=== PATIENT | female | born 1945 | race Caucasian/White ===

== ENCOUNTER 2019-03-13 19:49 | Inpatient (IN) | payer MEDICARE, BC ==
[~2019-03-13] VITALS: Ht 160 cm; Wt 60.1 kg
[~2019-03-13 19:49] MED LIST: HYDR1TAB94 PO; OXYACE5T PO; Percocet 5-3251 EACH PO
[2019-03-13 20:20] LABS: BASOPHILS ABSOLUTE AUTO 0.04 K/mm3 (0.00-0.23); BASOPHILS PERCENT AUTO 0 % (0-2); EOSINOPHILS PERCENT AUTO 0 % (0-6); Hematocrit 45.9 % (33.0-51.0); Hemoglobin 14.4 g/dL (11.5-16.0); IMMATURE GRAN ABSOLUTE AUTO 0.08 K/mm3 (0.00-0.10); IMMATURE GRAN PERCENT AUTO 0 % (0-1); LYMPHOCYTES ABSOLUTE AUTO 1.04 K/mm3 (0.84-5.20); LYMPHOCYTES PERCENT AUTO 5 % (21-46); MONOCYTES ABSOLUTE AUTO 0.92 K/mm3 (0.16-1.47); MONOCYTES PERCENT AUTO 5 % (4-13); Mean Corpuscular HGB 27.7 pg (26.0-34.0); Mean Corpuscular HGB Conc 31.4 g/dL (31.5-36.5); Mean Corpuscular Volume 88 fL (80-100); NEUTROPHILS ABSOLUTE AUTO 18.04 K/mm3 (1.96-9.15); NEUTROPHILS PERCENT AUTO 90 % (41-73); Platelet Count 464 K/mm3 (150-400); RDW Coefficient Variation 13.9 % (11.7-14.2); RDW Standard Deviation 45.1 fL (35.1-46.3); White Blood Cell Count 20.12 K/mm3 (4.00-11.30)
[2019-03-13 20:36] LABS: International Normalized Ratio 0.97; Prothrombin Time Results 10.3 Sec (9.7-11.5)
[2019-03-13 20:39] LABS: Alanine Aminotransfer (ALT/SGP 18 U/L (12-78); Albumin, Blood 3.6 g/dL (3.4-5.0); Albumin/Globulin Ratio 0.7 (0.8-1.8); Alk Phos 171 U/L (50-136); Anion Gap 13 mmol/L (6-16); Aspartate Aminotrans (AST/SGOT 53 U/L (12-37); Blood Urea Nitrogen 14 mg/dL (8-24); Bun/Creatinine Ratio 23.4 (12.0-20.0); CO2, Blood 23 mmol/L (21-32); Calcium, Blood 9.4 mg/dL (8.5-10.1); Chloride, Blood 96 mmol/L (98-108); Globulin, Blood 5.1 g/dL (2.2-4.0); Glomerular Filtration Rate >60 (60-); Glucose, Blood 104 mg/dL (70-99); Potassium, Blood 3.9 mmol/L (3.5-5.5); Sodium, Blood 132 mmol/L (136-145); Total Protein, Blood 8.7 g/dL (6.4-8.2)
[2019-03-13 22:57] LABS: Source, Urine Catheter
[2019-03-13 22:59] LABS: Creatine Kinase MB Index 0.9 (0.0-4.0)
[2019-03-13 22:59] LABS: Bilirubin, Urine Neg (Neg); Blood, Urine 1+ (Neg); Glucose Qualitative, Urine Neg (Neg); Ketones, Urine 4+ (Neg); Leukocyte Esterase, Urine Neg (Neg); Nitrite, Urine Neg (Neg); Protein, Urine 3+ (Neg); Urobilinogen, Urine NORM (Normal); pH, Urine 6.5 (5.0-8.0)
[2019-03-13 23:06] LABS: Appearance, Urine Clear (Clear); Bacteria Rare /hpf; Color, Urine Yellow (P-Yellow); Mucus Light (0-Heavy); Red Blood Cells, Urine 0-2 /hpf (0-2); Squamous Epithelial Cells Few /hpf (Few); White Blood Cells, Urine Not Seen /hpf (0-5)
[2019-03-13 23:22] LABS: Magnesium, Blood 2.1 mg/dL (1.6-2.4)
[2019-03-13 23:25] LABS: Thyroid Stimulating Hormone 0.447 uIU/mL (0.360-4.800)
--- NOTE | 2019-03-14 05:34 | NUR ---
SHIFT SUMMARY: PT IS ALERT BUT DROWSY UPON ARRIVAL TO THE FLOOR. IT IS HARD TO DETERMINE HOW ORIENTED SHE IS, DOES ANSWER QUESTIONS APPROPRIATELY BUT HER SPEECH IS SLURRED/GARBLED AND DIFFICULT TO UNDERSTAND. WIGGINS PATENT AND DRAINING YELLOW URINE. PT DENIES PAIN, NAUSEA, VOMITING, AND SOB. FAMILY ARRIVED FROM OUT OF STATE EARLY IN THE MORNING. PT SLEPT MOST OF THE NIGHT AFTER ADMISSION. STRICT NPO ORDERED. BED IN LOW POSITION, CALL LIGHT WITHIN REACH, BED ALARM SET. WILL REPORT TO DAY NURSE.
[2019-03-14 05:57] LABS: Hematocrit 39.8 % (33.0-51.0); Hemoglobin 12.4 g/dL (11.5-16.0); Mean Corpuscular HGB 27.9 pg (26.0-34.0); Mean Corpuscular HGB Conc 31.2 g/dL (31.5-36.5); Mean Corpuscular Volume 89 fL (80-100); Mean Platelet Volume 10.3 fL (9.1-12.4); Platelet Count 332 K/mm3 (150-400); RDW Coefficient Variation 14.1 % (11.7-14.2); Red Blood Cell Count 4.45 M/mm3 (3.80-5.20); White Blood Cell Count 17.07 K/mm3 (4.00-11.30)
[2019-03-14 06:24] LABS: Anion Gap 8 mmol/L (6-16); Blood Urea Nitrogen 15 mg/dL (8-24); Bun/Creatinine Ratio 22.5 (12.0-20.0); CHOL/HDL RATIO 3.8; CO2, Blood 25 mmol/L (21-32); Calcium, Blood 8.4 mg/dL (8.5-10.1); Chloride, Blood 100 mmol/L (98-108); Cholesterol 167 mg/dL (50-200); Creatinine, Blood 0.67 mg/dL (0.40-1.00); Glomerular Filtration Rate >60 (60-); Glucose, Blood 71 mg/dL (70-99); HDL Cholesterol 44 mg/dL (>39); LDL/HDL RATIO 2.4; Low Density Lipoprotein Chol 106 mg/dL (0-110); Potassium, Blood 3.7 mmol/L (3.5-5.5); Sodium, Blood 133 mmol/L (136-145); Triglycerides 84 mg/dL (30-160); Very Low Density Lipoprot Chol 16 mg/dL (6-32)
--- NOTE | 2019-03-14 10:24 | NUR ---
ECHOCARDIOGRAM COMPLETED
--- NOTE | 2019-03-15 04:45 | NUR ---
SHIFT SUMMARY: PT SLEEPING ALL SHIFT. FAMILY IN THE ROOM AT THE START OF THE NIGHT. PT IS A 1-2 ASSIST FOR TRANSFERS, NOT OUT OF BED OVERNIGHT. FLUIDS RUNNING ORDERED. CATHETER PATENT AND DRAINING YELLOW URINE. PT SHOWS NO S/S FOR PAIN, NAUSEA, VOMITING, OR SOB. NO ACUTE CHANGES OVERNIGHT. WILL REPORT TO DAY NURSE.
--- NOTE | 2019-03-15 18:07 | NUR ---
SHIFT SUMMARY PATIENT PLEASANT. NO ACUTE CONCERNS. PATIENT TO DISCHARGE ON MONDAY TO [facility]. DR. JAQUEZ AND MYSELF ARE AWARE. PATIENT IS PRIVATE PAY WITH [employer] AND HAVE FACILITATED THE PAYMENT PRIOR TO PATIENT DISCHARGE. PATIENT IS TO BE TRANSPORTED TO [facility]. ALL DISCHARGE INFORMATION SHOULD BE FAXED TO PATIENTS FACILITY PRIOR TO THE DISCHARGE SO THAT THE PATIENT CAN BE SETTLED WHEN SHE ARRIVES AT THE FACILITY.
[2019-03-16 05:32] LABS: BASOPHILS ABSOLUTE AUTO 0.05 K/mm3 (0.00-0.23); BASOPHILS PERCENT AUTO 0 % (0-2); EOSINOPHILS ABSOLUTE AUTO 0.03 K/mm3 (0.00-0.68); EOSINOPHILS PERCENT AUTO 0 % (0-6); Hematocrit 41.4 % (33.0-51.0); Hemoglobin 12.8 g/dL (11.5-16.0); IMMATURE GRAN ABSOLUTE AUTO 0.05 K/mm3 (0.00-0.10); IMMATURE GRAN PERCENT AUTO 0 % (0-1); LYMPHOCYTES ABSOLUTE AUTO 1.04 K/mm3 (0.84-5.20); LYMPHOCYTES PERCENT AUTO 9 % (21-46); MONOCYTES ABSOLUTE AUTO 1.04 K/mm3 (0.16-1.47); MONOCYTES PERCENT AUTO 9 % (4-13); Mean Corpuscular HGB 27.9 pg (26.0-34.0); Mean Corpuscular HGB Conc 30.9 g/dL (31.5-36.5); Mean Corpuscular Volume 90 fL (80-100); NEUTROPHILS PERCENT AUTO 82 % (41-73); Platelet Count 332 K/mm3 (150-400); RDW Coefficient Variation 14.3 % (11.7-14.2); RDW Standard Deviation 47.4 fL (35.1-46.3); Red Blood Cell Count 4.58 M/mm3 (3.80-5.20); White Blood Cell Count 12.21 K/mm3 (4.00-11.30)
[2019-03-16 05:45] LABS: Anion Gap 8 mmol/L (6-16); Blood Urea Nitrogen 12 mg/dL (8-24); Bun/Creatinine Ratio 19.4 (12.0-20.0); CO2, Blood 29 mmol/L (21-32); Calcium, Blood 8.6 mg/dL (8.5-10.1); Chloride, Blood 102 mmol/L (98-108); Creatinine, Blood 0.62 mg/dL (0.40-1.00); Glomerular Filtration Rate >60 (60-); Glucose, Blood 72 mg/dL (70-99); Potassium, Blood 3.9 mmol/L (3.5-5.5); Sodium, Blood 139 mmol/L (136-145)
--- NOTE | 2019-03-16 07:19 | NUR ---
alert, orintated to self, call light in reach able to make needs known, saline locked, 3L via nc, walking rounds completed with returning day shift
--- NOTE | 2019-03-16 16:40 | NUR ---
PATIENT WENT INTO ONE EPISODE OF SVT NOTED BY THE TERRAZZO LAYER. SPOKE WITH THE PATIENT AND EHR FAMILY. PATIENT WAS ASYMPTOMATIC AND WENT BACK TO SINUS RHYTHM ON HER OWN. CHECKED VITALS, PATIENT STABLE. WAS NOTIFIED OF ANOTHER EPISODE OF INCREASED HEART RATE THAT SUSTAINED IN THE 180S. CHECKED ON PATIENT, ASYMPTOMATIC MINUS LETHARGY. NO INCREASED BREATHING LABOR NOTED. PATIENT CONVERTED ONCE MORE. WITHIN 10 MINUTES WAS NOTIFIED PATIENT WAS ONCE AGAIN IN THE 180S AND STAYED IN THE 180S. CALLED DR. JAQUEZ AND CHECKED VITALS. PATIENTS BLOOD PRESSURE AND OTHER VITALS WERE STABLE. DR. JAQUEZ ORDERED AN EKG WHICH NOTED THE PATIENT WAS IN AFIB. PATIENT WAS SET UP FOR TRANSFER TO PCU. FAMILY WAS IN THE ROOM WHEN THE DECISION WAS MADE. FAMILY IS NOTIFIED. PATIENT WAS GIVEN ONE TIME DOSE OF 2.5 MG METOPROLOL IV PUSH. PATIENT TRANSFERRED IMMEDIATELY AFTER DOSE OF METOPROLOL GIVEN. BEDSIDE REPORT GIVEN TO [employer] SALES REPRESENTATIVE.
--- NOTE | 2019-03-16 17:17 | NUR ---
PT TRANSFERED FROM [facility] TO [facility] @3665. PT WAS WHEELED DOWN IN A CHAIR. PT SITTING AND LEANING TOWARDS THE R SIDE. PT ALERT TO SELF, FAMILY AND CAN FOLLOW DIRECTIONS. PT SPEECH IS SLURRED AND SPEAKS ONE WORD SENTENCES. L SIDED WEAKNESS DUE TO ISCHEMIC CVA. SENSATION ABSENT IN L ARM. RHYTHMN NORMAL SINUS PER OUTSIDE RIGGER.IV IN HER R AC. PERIPHERAL PULSES STRONG. INDWELLING CATH DRAINING. URINE YELLOW AND CLEAR. PAIN DENIES PAIN AT THIS TIME. FAMILY IN ROOM AND IS INVOLVED WITH CARE. FAMILY EXPRESSES WISHES TO BE DISCHARGED TO [place] TOMORROW IF EVERYTHING GOES WELL TONIGHT. WILL CONTINUE TO MONITOR UNTIL SHIFT CHANGE.
--- NOTE | 2019-03-16 20:34 | NUR ---
PM NOTE ASSUMED CARE OF PT APROX 1900, PT IS A&O TO SELF, FAMILY, PLACE AND PRESIDENT. PT IS S/P RIGHT SIDED CVA W/LEFT SIDED DEFICITS. PT'S LEFT ARM MOVEMENT/SENSATION IS ABSENT, PT'S LEFT LEG HAS SOME GROSS MOVEMENT BUT UNABLE TO ASSESS SENSATION AT THIS TIME. PT HAS LEFT SIDED FACIAL DROOP AND UNABLE TO OPEN HER LEFT EYE. PT HAS SEVERAL FAMILY MEMEBERS IN THE ROOM FROM OUT OF TOWN, FAMILY PLANS TO TAKE PT BACK TO [place]. TELE INTACT, NSR IN THE 90'S-100'S PER FURNACE CHECKER, PT'S LAST EPISODE OF AFIB WAS APROX 1600 TODAY. PT'S BP 114/68. NO EDEMA NOTED ON ASSESSMENT. PT'S L/S CELAR T/O BUT DIM ON THE RIGHT SIDE, PT IS ON 2L NC AT 95%, THIS WAS JUST TITRATED FROM 4L NC, WILL CONTINUE TO TITRATE PT TOLERATES. BT PRESENT BUT HYPOACTIVE, ABD IS SOFT AND NONTENDER TO PALP. PT'S SPEECH IS SLURRED AND WORD SALAD AT TIMES. PT'S WIGGINS IS PATENT AND DRAINING CLEAR YELLOW URINE TO GRAVITY. CALL LIGHT IN REACH, BED IS LOCKED AND LOW WILL CONTINUE TO MONITOR.
[2019-03-17 04:04] LABS: BASOPHILS ABSOLUTE AUTO 0.05 K/mm3 (0.00-0.23); BASOPHILS PERCENT AUTO 0 % (0-2); EOSINOPHILS ABSOLUTE AUTO 0.06 K/mm3 (0.00-0.68); EOSINOPHILS PERCENT AUTO 0 % (0-6); Hematocrit 39.8 % (33.0-51.0); Hemoglobin 12.4 g/dL (11.5-16.0); IMMATURE GRAN ABSOLUTE AUTO 0.04 K/mm3 (0.00-0.10); IMMATURE GRAN PERCENT AUTO 0 % (0-1); LYMPHOCYTES PERCENT AUTO 9 % (21-46); MONOCYTES ABSOLUTE AUTO 1.26 K/mm3 (0.16-1.47); MONOCYTES PERCENT AUTO 9 % (4-13); Mean Corpuscular HGB 27.6 pg (26.0-34.0); Mean Corpuscular HGB Conc 31.2 g/dL (31.5-36.5); Mean Corpuscular Volume 89 fL (80-100); Mean Platelet Volume 10.2 fL (9.1-12.4); NEUTROPHILS ABSOLUTE AUTO 11.35 K/mm3 (1.96-9.15); NEUTROPHILS PERCENT AUTO 81 % (41-73); Platelet Count 386 K/mm3 (150-400); RDW Coefficient Variation 14.2 % (11.7-14.2); RDW Standard Deviation 45.4 fL (35.1-46.3); Red Blood Cell Count 4.49 M/mm3 (3.80-5.20); White Blood Cell Count 14.06 K/mm3 (4.00-11.30)
[2019-03-17 04:18] LABS: Anion Gap 9 mmol/L (6-16); Blood Urea Nitrogen 17 mg/dL (8-24); Bun/Creatinine Ratio 26.4 (12.0-20.0); CO2, Blood 30 mmol/L (21-32); Calcium, Blood 8.9 mg/dL (8.5-10.1); Chloride, Blood 99 mmol/L (98-108); Creatinine, Blood 0.64 mg/dL (0.40-1.00); Glomerular Filtration Rate >60 (60-); Glucose, Blood 97 mg/dL (70-99); Potassium, Blood 3.6 mmol/L (3.5-5.5); Sodium, Blood 138 mmol/L (136-145)
--- NOTE | 2019-03-17 06:31 | NUR ---
SHIFT SUMMARY. PT SLEPT MOST OF THE NIGHT, VS STABLE T/O SHIFT. TEMP INCREASED TO 99.9, PT WAS MEDICATED PER EMAR W/GOOD RESULTS. PT IS ON 2L NC WITH O2 SATS >90%, TITRATION WAS ATTEMPTED MULTIPLE TIMES T/O SHIFT BUT PT'S O2 SATS WOULD DROP DOWN TO 85% W/O 2L NC ON. PT'S WIGGINS DRAINED 125MLS OF DARK IDALIA URINE, PT'S ORAL INTAKE THIS SHIFT WAS 50MLS. NO CARDIAC EVENTS OR AFIB THIS SHIFT. CALL LIGHT IN REACH, BED IS LOCKED AND LOW WILL CONTINUE TO MONITOR UNTIL REPORT IS GIVEN TO ONCOMING RN.
--- NOTE | 2019-03-17 07:59 | NUR ---
ASSUMED CARE OF PT @0700. PT SLEEPING IN BED. PT LOOKS AT ME WHEN TALKING. CAN SAY SLURRED ONE WORD SENTENCES. FOLLOWS COMMANDS BUT THEY ARE SLOW. NOTED LEFT SIDE DIFICT AND LEFT SIDE FACAL DROOP. MINIMAL MOVEMENT OF LEFT FOOT TO PHYSICAL STIMULUS AND L UPPER EXTREMITY FLACCID. PT IN NRS PER SLEEP TECHNOLOGIST. LUNG SOUNDS DIMINISHED THROUGHOUT. ON 2 L NASAL CANNULA @ LOW 90S. CATHERTER DRAINING WITH GAVITY, URINE CLEAR AND YELLOW. PT TRANSFERED 2 PERSON STAND PIVOT. PT IS EATING BREAKFAST WITH ASSISTANCE FROM RECREATION DIRECTOR. PMD VISITED WITH PT. STATES SHE WILL NEED TO STAY ONE MORE DAY FOR MONITORING. WILL CONTINUE TO MONITOR. CALL LIGHT IN REACH. CHAIR WHEELS LOCKED.
--- NOTE | 2019-03-17 17:24 | NUR ---
NO SIGNIFICANT CHANGES NOTED THOUGHOUT THE SHIFT. SEEN BY PMD, NEW DOCTOR ORDERS RECEIVED. PT CURRENTLY SITTING IN CHAIR WITH FAMILY EATING DINNER. PT IS LETHARGIC BUT RESPONSIVE TO VERBAL STIMULUS. PT SINUS TACH THROUGHOUT SHIFT. SKIN PALE. PT WAS ABLE TO HELP STAND MORE THAN YESTERDAY. WILL CONTINUE TO MONITER UNTIL SHIFT CHANGE. CALL LIGHT IN REACH. CHAIR WHEELS LOCKED.
--- NOTE | 2019-03-18 00:12 | NUR ---
PT ARRIVAL TO UNIT. PT ARRIVED VIA GURNEY FROM THE ED. PT WAS ADMITTED DUE TO NSTEMI, ELEVATED TROPONINS AND BNP. PT WAS ABLE TO SELF TRANSFER FROM GURNEY TO BED BUT STATED THAT IT MADE HIM "WINDED." PT DENEIS ACTIVE CHEST PAIN AT THIS TIME. NITRO PASTE PRESENT ON LEFT UPPER CHEST WALL. TELE PLACED NSR W/FIRST DEGREE AND BBB IN THE 90'S PER SCOOP DRIVER. PT'S BP 107/64. NO EDEMA NOTED ON ASSESSMENT. PT'S L/S CLEAR T/O AND DIM IN THE BASES PT IS ON RA W/O2 SATS AT 93%. BT PRESENT AND HYPOACTIVE, ABD IS SOFT AND NONTENDER TO PALP. PT C/O OF CHRONIC PAIN TO HIS RIGHT SHOULDER, WILL MEDICATE PER EMAR. CALL LIGHT IN REACH, BED IS LOCKED AND LOW W/BED ALARM ON WILL CONTINUE TO MONITOR.
--- NOTE | 2019-03-18 00:59 | NUR ---
PM NOTE. ASSUMED CARE OF PT APROX 1900, PT WAS ADMITTED FOR ACUTE CVA W/ LEFT SIDED WEAKNESS, PT HAS FAMILY AT THE BEDSIDE. TELE INTACT, NSR IN THE 90'S PER [employer] AIRCRAFT CONTROLLER. PT'S BP 121/82, NO EDEMA NOTED ON ASSESSMENT, L/S CLEAR T/O BUT DIM. PT IS ON 2L NC WITH O2 >92%. BT PRESENT AND HYPOACTIVE, ABD IS SOFT AND NONTENDER TO PALP. CALL LIGHT IN REACH, BED IS LOCKED AND LOW WILL CONTINUE TO MONITOR.
--- NOTE | 2019-03-18 05:05 | NUR ---
SHIFT SUMMARY. NO ACUTE CHANGES NOTED THIS SHIFT. PT'S VS HAVE BEEN STABLE. PT IS STILL ON 2L NC WITH O2 SATS AT 93%. PT HAS SLEPT WELL THIS SHIFT. PT WAS ABLE TO MAKE NEEDS KNOWN AND HER SPEECH HAS IMPROVED/CLEARED SINCE PREVIOUS SHIFT. CALL LIGHT IN REACH, BED IS LOCKED AND LOW WILL CONTINUE TO MONITOR UNTIL REPORT IS GIVEN TO ONCOMING RN.
[2019-03-18 09:53] LABS: BASOPHILS ABSOLUTE AUTO 0.03 K/mm3 (0.00-0.23); BASOPHILS PERCENT AUTO 0 % (0-2); EOSINOPHILS ABSOLUTE AUTO 0.01 K/mm3 (0.00-0.68); EOSINOPHILS PERCENT AUTO 0 % (0-6); Hematocrit 41.8 % (33.0-51.0); Hemoglobin 13.1 g/dL (11.5-16.0); IMMATURE GRAN ABSOLUTE AUTO 0.09 K/mm3 (0.00-0.10); IMMATURE GRAN PERCENT AUTO 1 % (0-1); LYMPHOCYTES ABSOLUTE AUTO 0.63 K/mm3 (0.84-5.20); LYMPHOCYTES PERCENT AUTO 4 % (21-46); MONOCYTES ABSOLUTE AUTO 0.99 K/mm3 (0.16-1.47); MONOCYTES PERCENT AUTO 6 % (4-13); Mean Corpuscular HGB 27.7 pg (26.0-34.0); Mean Corpuscular HGB Conc 31.3 g/dL (31.5-36.5); Mean Corpuscular Volume 88 fL (80-100); Mean Platelet Volume 10.1 fL (9.1-12.4); NEUTROPHILS ABSOLUTE AUTO 16.03 K/mm3 (1.96-9.15); NEUTROPHILS PERCENT AUTO 90 % (41-73); Platelet Count 472 K/mm3 (150-400); RDW Coefficient Variation 14.3 % (11.7-14.2); RDW Standard Deviation 46.2 fL (35.1-46.3); Red Blood Cell Count 4.73 M/mm3 (3.80-5.20); White Blood Cell Count 17.78 K/mm3 (4.00-11.30)
[2019-03-18 10:05] LABS: Anion Gap 7 mmol/L (6-16); Blood Urea Nitrogen 28 mg/dL (8-24); Bun/Creatinine Ratio 40.8 (12.0-20.0); CO2, Blood 32 mmol/L (21-32); Calcium, Blood 9.5 mg/dL (8.5-10.1); Chloride, Blood 99 mmol/L (98-108); Creatinine, Blood 0.69 mg/dL (0.40-1.00); Glomerular Filtration Rate >60 (60-); Glucose, Blood 160 mg/dL (70-99); Potassium, Blood 3.6 mmol/L (3.5-5.5); Sodium, Blood 138 mmol/L (136-145)
--- NOTE | 2019-03-18 11:08 | NUR ---
PERMISSION FOR CARE PATIENT GAVE [place] [employer] PERMISSION TO ASSIST RN IN PROVIDING CARE ON 03/19/2019 FROM [phone]. NATALY RENEE
--- NOTE | 2019-03-18 17:59 | NUR ---
No acute changes noted. Patient is doing well and has more spontaneous movements noted. Reyes is patent and draining. Family is at bedside during most of the shift. No other issues noted at this time. Will continue to monitor for changes.
--- NOTE | 2019-03-18 23:05 | NUR ---
PCU NIGHTSHIFT ASSUMED CARE OF PT APPROX. 1900. PT ALERT TO SELF, FAMILY, PLACE AND FOLLOWS DIRECTIONS. PT ABLE TO ANSWER SOME QUESTIONS IF ASKED SLOWLY AND ASKED ONE QUESTION AT A TIME. PT VITAL SIGNS STABLE. ASSESSMENT COMPLETED. PT ON 2L OXYGEN VIA NC WITH SATS IN 90'S. PT HAS LEFT SIDE DEFICIT FROM RECENT CVA. PT REPORTS BEING ABLE TO TO SLIGHTLY FEEL TOUCH IN LEFT FOOT. OTHERWISE NO SENSATION ON LEFT SIDE. PT HAS SOME GROSS MOVEMENT IN LEFT LEG ON OCCASION BUT UNABLE TO DO ON COMMAND. PT HAS LEFT SIDE FACIAL DROOP. WIGGINS IN PLACE, PATENT AND DRAINING. FAMILY AT BEDSIDE. FAMILY ASSISTING WITH TURNS. BED IN LOW POSITION, SOFT CALL LIGHT PLACED IN REACH, AND PT DENIES ANY NEEDS AT THIS TIME.
[2019-03-19 04:15] LABS: Bilirubin, Urine Neg (Neg); Blood, Urine 4+ (Neg); Glucose Qualitative, Urine Neg (Neg); Ketones, Urine 3+ (Neg); Leukocyte Esterase, Urine 2+ (Neg); Nitrite, Urine Pos (Neg); Protein, Urine 2+ (Neg); Urobilinogen, Urine 2+ (Normal)
[2019-03-19 04:16] LABS: Appearance, Urine Hazy (Clear); Color, Urine Yellow (P-Yellow)
[2019-03-19 04:21] LABS: Bacteria Many /hpf; Red Blood Cells, Urine 25-50 /hpf (0-2); Squamous Epithelial Cells Not Seen /hpf (Few); White Blood Cells, Urine 50-100 /hpf (0-5)
[2019-03-19 06:41] LABS: BASOPHILS ABSOLUTE AUTO 0.05 K/mm3 (0.00-0.23); BASOPHILS PERCENT AUTO 0 % (0-2); EOSINOPHILS ABSOLUTE AUTO 0.21 K/mm3 (0.00-0.68); EOSINOPHILS PERCENT AUTO 2 % (0-6); Hematocrit 37.7 % (33.0-51.0); Hemoglobin 11.5 g/dL (11.5-16.0); IMMATURE GRAN ABSOLUTE AUTO 0.05 K/mm3 (0.00-0.10); IMMATURE GRAN PERCENT AUTO 0 % (0-1); LYMPHOCYTES ABSOLUTE AUTO 1.01 K/mm3 (0.84-5.20); LYMPHOCYTES PERCENT AUTO 8 % (21-46); MONOCYTES PERCENT AUTO 9 % (4-13); Mean Corpuscular HGB 27.2 pg (26.0-34.0); Mean Corpuscular HGB Conc 30.5 g/dL (31.5-36.5); Mean Corpuscular Volume 89 fL (80-100); Mean Platelet Volume 9.7 fL (9.1-12.4); NEUTROPHILS ABSOLUTE AUTO 10.17 K/mm3 (1.96-9.15); NEUTROPHILS PERCENT AUTO 81 % (41-73); Platelet Count 379 K/mm3 (150-400); RDW Coefficient Variation 14.6 % (11.7-14.2); RDW Standard Deviation 47.1 fL (35.1-46.3); Red Blood Cell Count 4.23 M/mm3 (3.80-5.20); White Blood Cell Count 12.59 K/mm3 (4.00-11.30)
[2019-03-19 07:00] LABS: Anion Gap 4 mmol/L (6-16); Blood Urea Nitrogen 21 mg/dL (8-24); Bun/Creatinine Ratio 36.8 (12.0-20.0); CO2, Blood 32 mmol/L (21-32); Calcium, Blood 8.6 mg/dL (8.5-10.1); Chloride, Blood 105 mmol/L (98-108); Creatinine, Blood 0.57 mg/dL (0.40-1.00); Glomerular Filtration Rate >60 (60-); Glucose, Blood 102 mg/dL (70-99); Potassium, Blood 3.9 mmol/L (3.5-5.5); Sodium, Blood 141 mmol/L (136-145)
--- NOTE | 2019-03-19 07:18 | NUR ---
SHIFT SUMMARY PT PLEASANT, COOPERATIVE AND USES CALL LIGHT APPROPRIATELY. PT UNABLE TO PRESS BUTTON ON NORMAL CALL LIGHT SO GAVE PT A SOFT CALL LIGHT AND EDUCATED ON USE. PT ABLE TO USE WITH WITHOUT COMPLICATIONS. VITAL SIGNS REMAIN STABLE. ASSESSMENT FINDINGS REMAIN UNCHANGED. CONTINUED TO TURN MY EVERY 2 HOURS. WIGGINS REMAINS INTACT, PATENT AND DRAINING. PT ABLE TO SIT UP AND HAVE THICKENED WATER NEEDED BUT REQUESTED THAT STAFF BE IN ROOM FOR THIS. PT ABLE TO SLEEP SECOND HALF OF SHIFT. BED IN LOW POSTION, CALL LIGHT IN REACH AND PT DENIES ANY NEEDS AT THIS TIME. WILL CONTINUE TO MONITOR UNTIL HANDOFF TO DAYSHIFT RN.
--- NOTE | 2019-03-19 17:39 | NUR ---
SHIFT SUMMARY PT RESTING IN BED AND CHAIR TODAY. ALERT AND ORIENTED X3. SLOW TO RESPOND, BUT ABLE TO MAKE NEEDS KNOWN. LEFT FACIAL DROOP NOTED, NO MOVEMENT TO LEFT ARM OR LEG, BUT PT DOES FEEL TOUCH TO ARM AND LEG. PT UP TO CHAIR WITH PHYSICAL THERAPY, TOLERATED WELL. PT TAKING PILLS CRUSHED IN APPLESAUCE. SINUS RHYTHM TO SINUS TACHYCARDIA RATE 90s TO 100s. FAMILY AT BEDSIDE THROUGHOUT THE DAY. WILL CONTINUE TO MONITOR.
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
--- NOTE | 2019-03-19 22:14 | NUR ---
PCU NIGHTSHIFT ASSUMED CARE OF PT APPROX. 1900. PT ALERT TO SELF, FAMILY, PLACE AND FOLLOWS DIRECTIONS. PT ABLE TO ANSWER QUESTIONS IF ASKED SLOWLY AND ASKED ONE QUESTION AT A TIME. PT VITAL SIGNS STABLE. ASSESSMENT COMPLETED. PT ON 2L OXYGEN VIA NC WITH SATS IN 90'S. PT HAS LEFT SIDE DEFICIT FROM RECENT CVA. PT REPORTS BEING ABLE TO TO SLIGHTLY FEEL TOUCH IN LEFT FOOT. OTHERWISE NO SENSATION ON LEFT SIDE. PT HAS SOME GROSS MOVEMENT IN LEFT LEG AND ARM ON OCCASION BUT UNABLE TO DO ON COMMAND. PT HAS LEFT SIDE FACIAL DROOP. WIGGINS IN PLACE, PATENT AND DRAINING. FAMILY AT BEDSIDE. FAMILY ASSISTING WITH TURNS. BED IN LOW POSITION, SOFT CALL LIGHT PLACED IN REACH, AND PT DENIES ANY NEEDS AT THIS TIME.
--- NOTE | 2019-03-20 05:46 | NUR ---
SHIFT SUMMARY SHIFT SUMMARY PT PLEASANT, COOPERATIVE AND USES CALL LIGHT APPROPRIATELY. PT ABLE TO USE SOFT CALL LIGHT. PT ABLE TO USE WITH WITHOUT COMPLICATIONS. VITAL SIGNS REMAIN STABLE. ASSESSMENT FINDINGS REMAIN UNCHANGED. CONTINUED TO TURN EVERY 2 HOURS. PT VOIDS T/O SHIFT, INCONTINENT BUT ABLE TO LET STAFF KNOW WHEN ATTENDS WAS WET. PT ABLE TO SLEEP MOST OF SHIFT. BED IN LOW POSTION, CALL LIGHT IN REACH AND PT DENIES ANY NEEDS AT THIS TIME. WILL CONTINUE TO MONITOR UNTIL HANDOFF TO DAYSHIFT RN.
[2019-03-20 06:35] LABS: BASOPHILS ABSOLUTE AUTO 0.05 K/mm3 (0.00-0.23); BASOPHILS PERCENT AUTO 0 % (0-2); EOSINOPHILS ABSOLUTE AUTO 0.42 K/mm3 (0.00-0.68); EOSINOPHILS PERCENT AUTO 3 % (0-6); Hematocrit 34.1 % (33.0-51.0); Hemoglobin 10.7 g/dL (11.5-16.0); IMMATURE GRAN ABSOLUTE AUTO 0.05 K/mm3 (0.00-0.10); IMMATURE GRAN PERCENT AUTO 0 % (0-1); LYMPHOCYTES ABSOLUTE AUTO 1.04 K/mm3 (0.84-5.20); LYMPHOCYTES PERCENT AUTO 8 % (21-46); MONOCYTES ABSOLUTE AUTO 0.85 K/mm3 (0.16-1.47); MONOCYTES PERCENT AUTO 7 % (4-13); Mean Corpuscular HGB 27.8 pg (26.0-34.0); Mean Corpuscular HGB Conc 31.4 g/dL (31.5-36.5); Mean Corpuscular Volume 89 fL (80-100); Mean Platelet Volume 9.8 fL (9.1-12.4); NEUTROPHILS ABSOLUTE AUTO 10.02 K/mm3 (1.96-9.15); NEUTROPHILS PERCENT AUTO 81 % (41-73); Platelet Count 389 K/mm3 (150-400); RDW Coefficient Variation 14.5 % (11.7-14.2); RDW Standard Deviation 47.2 fL (35.1-46.3); Red Blood Cell Count 3.85 M/mm3 (3.80-5.20); White Blood Cell Count 12.43 K/mm3 (4.00-11.30)
[2019-03-20 06:55] LABS: Anion Gap 3 mmol/L (6-16); Blood Urea Nitrogen 15 mg/dL (8-24); Bun/Creatinine Ratio 33.2 (12.0-20.0); CO2, Blood 30 mmol/L (21-32); Calcium, Blood 8.2 mg/dL (8.5-10.1); Chloride, Blood 105 mmol/L (98-108); Creatinine, Blood 0.45 mg/dL (0.40-1.00); Glomerular Filtration Rate >60 (60-); Glucose, Blood 101 mg/dL (70-99); Potassium, Blood 3.6 mmol/L (3.5-5.5); Sodium, Blood 138 mmol/L (136-145)
--- NOTE | 2019-03-20 19:32 | NUR ---
PT RESTING IN BED. REC'ING RT TX. SON AND [id number] STEPPED OUT OF RM, WILL BE BACK SOON PER PT. SOFT TOUCH BUTTON ON PT'S ABD, WITH IN REACH. PT HAS DONE WELL TODAY. VSS, INCREASED MUSCLE MOVEMENT AND STRENGTH. PT MOVING SELF AND TALKING MUCH BETTER THAN YESTERDAY. REPORT GIVEN TO GAB RM. PT INTRODUCED.
[2019-03-21 06:48] LABS: BASOPHILS ABSOLUTE AUTO 0.04 K/mm3 (0.00-0.23); BASOPHILS PERCENT AUTO 0 % (0-2); EOSINOPHILS ABSOLUTE AUTO 0.81 K/mm3 (0.00-0.68); EOSINOPHILS PERCENT AUTO 6 % (0-6); Hematocrit 36.9 % (33.0-51.0); Hemoglobin 11.5 g/dL (11.5-16.0); IMMATURE GRAN ABSOLUTE AUTO 0.06 K/mm3 (0.00-0.10); IMMATURE GRAN PERCENT AUTO 1 % (0-1); LYMPHOCYTES PERCENT AUTO 8 % (21-46); MONOCYTES ABSOLUTE AUTO 0.86 K/mm3 (0.16-1.47); MONOCYTES PERCENT AUTO 7 % (4-13); Mean Corpuscular HGB 27.6 pg (26.0-34.0); Mean Corpuscular HGB Conc 31.2 g/dL (31.5-36.5); Mean Corpuscular Volume 89 fL (80-100); Mean Platelet Volume 9.6 fL (9.1-12.4); NEUTROPHILS PERCENT AUTO 79 % (41-73); Platelet Count 437 K/mm3 (150-400); RDW Coefficient Variation 14.3 % (11.7-14.2); RDW Standard Deviation 46.5 fL (35.1-46.3); Red Blood Cell Count 4.16 M/mm3 (3.80-5.20); White Blood Cell Count 12.97 K/mm3 (4.00-11.30)
[2019-03-21 07:03] LABS: Anion Gap 6 mmol/L (6-16); Blood Urea Nitrogen 10 mg/dL (8-24); Bun/Creatinine Ratio 25.1 (12.0-20.0); CO2, Blood 28 mmol/L (21-32); Calcium, Blood 8.3 mg/dL (8.5-10.1); Chloride, Blood 103 mmol/L (98-108); Glomerular Filtration Rate >60 (60-); Glucose, Blood 93 mg/dL (70-99); Potassium, Blood 3.5 mmol/L (3.5-5.5); Sodium, Blood 137 mmol/L (136-145)
--- NOTE | 2019-03-21 07:45 | NUR ---
SHIFT SUMMARY PATIENT PLEASENT AND COOPERATIVE THROUGHOUT THE NIGHT. PATIENT CONTINUES TO HAVE WEAKNESS ON THE LEFT SIDE, HOWEVER PATIENT DOES APPEAR TO HAVE MORE MOVEMENT AND ABILITY TO EXPRESS NEEDS THAN UPON ADMIT. PATIENT OCCATIONALLY ABLE TO APPROPRIATLEY USE THE CALL LIGHT AND HAS BEEN ABLE TO EXPRESS HER NEEDS THROUGHOUT THE NIGHT. PATIENT APPEARED TO SLEEP WELL ON AND OFF THROUGHOUT THE NIGHT. PATIENT TURNED Q2H. PATIENT ABLE TO STATE WHEN SHE HAS VOIDED AND NEEDS TO BE CHANGED BUT HAS BEEN UNABLE TO NOTIFY STAFF OF NEED BEFORE VOIDING IN ATTENDS. IV FLUIDS RUNNING PER ORDERS. PATIENT CURRENTLY RESTING IN BED. REPORT GIVEN TO ONCOMING RN.
--- NOTE | 2019-03-21 08:00 | NUR ---
PT LAYING IN BED AWAKE ALERT COOPERATIVE WITH CARE, FOLLOWS SOME COMMANDS SHE CAN, UNABLE TO UNDERSTAND MOST OF HER SPEECH, LEFT SIDE IS FLACID, UPPER AND LOWER EXT. SHE IS ABLE TO SWALLOW A PUREE DIET AND TAKE HER PO MEDS CRUSHED IN APPLESAUCE, SHE IS A TWO PERSON ASSIST BUT IS DIFF SHE CAN'T CONTROL HER LEFT LEG, WE DID GET HER TO A BSC, AND SHE HAD A BM, LIFT WAS USED TO GET HER BACK TO BED. LUNGS ARE CLEAR DIM IN BASES, RESP EVEN AND UNLABORED, NO COUGH EFFORT NOTED, IS A SHALLOW BREATHER, CURRENTLY ON 2 LITERS VIA N/C, HRR, TELE IN PLACE RUNNING ST TO ST PER MONITOR, SEE STRIP, NO EDEMA NOTED, PPP+2, CAP REFILL <3SEC, VS STABLE, AFEBRILE, IV STIE TO RFA IS CLEAR AND PATENT, BTX4, ABD FLAT SOFT NONTENDER, ATTENDS IN PLACE FOR INCONT, SKIN IS PINK ON BUTTOCKS. NO OPEN AREAS, MOVES RIGHT ARM BUT DOESN'T SEEM TO HAVE FULL CONTROL, ILZZ, SOFT TOUCH CALL LIGHT IN PLACE, BED ALARM ACTIVATED.
--- NOTE | 2019-03-21 12:00 | NUR ---
PT LEFT VIA GURNEY FROM [facility] TO TAKE HER TO FACILITY IN [facility]. PACKET AND REPORT GIVEN TO THEM, MOVED OVER TO THE GURNEY EASILY. O2 WAS DELIVERED AND IS ON IT. DAUGHTER IN LAW IN ATTENDENCE.
== END 2019-03-21 12:18 | disposition home or self-care (01) | DRG 65 ==
LOC: ER 19:49 → PCU 22:15 → MEDS 22:15 → PCU 03-16 15:44
PROVIDERS: Emergency Medicine; Hospitalist; Internal Medicine; Nurse Practitioner Acute Care; ADMIT Internal Medicine
DX: I63.511 Cerebral infarction due to unspecified occlusion or stenosis of right middle cerebral artery (principal); E87.1 Hypo-osmolality and hyponatremia; N39.0 Urinary tract infection, site not specified; G81.94 Hemiplegia, unspecified affecting left nondominant side; M41.9 Scoliosis, unspecified; E86.0 Dehydration; E87.8 Other disorders of electrolyte and fluid balance, not elsewhere classified; I65.23 Occlusion and stenosis of bilateral carotid arteries; R47.81 Slurred speech; R09.02 Hypoxemia; I48.91 Unspecified atrial fibrillation; R05 Cough; J44.9 Chronic obstructive pulmonary disease, unspecified; Z79.82 Long term (current) use of aspirin; Z79.02 Long term (current) use of antithrombotics/antiplatelets
CPT/HCPCS: 36415; 36416; 51702; 70496; 70498; 71045; 71046; 80048; 80053; 80061; 81001; 82550; 82553; 83735; 83880; 84145; 84443; 85025; 85027; 85610; 85730; 87077; 87086; 87186; 92526; 92610; 93005; 93010; 93306; 94640; 94760; 94761; 96360-59; 97110; 97112; 97162; 97166; 97530; 97535; 99285-25; J0696; J1650; J1940; J7030; Q9967